=== PATIENT | female | born 1995 | race Caucasian/White ===

== ENCOUNTER 2018-07-10 17:05 | Emergency (ER) | payer OTHER ==
[2018-07-10] MEDS ORDERED: ONDANSETRON 4 MG TAB.RAPDIS PO ONE (18:17)
[2018-07-10] MEDS ORDERED: ACETAMINOPHEN 325 MG TABLET PO ONE (18:20)
--- NOTE | 2018-07-10 18:26 | ER Document Report ---
ED Head/Face/Scalp Injury - General Chief Complaint: Headache Stated Complaint: HEAD INJURY Time Seen by Provider: 07/10/18 18:02 Mode of Arrival: Ambulatory Information source: Patient Notes: 22-year-old female presents to ED for complaint of pain to her head. After she hit her head on the she states she was getting frustrated trying to push the laundry back down the shoot when she hit her head on the wall of the shoot. She states she took some ibuprofen at work when it happened and her [id number]-ad-rgx came and took her to the urgent care but the urgent care refused to see her so her eddjov-fm-loo took her back home because the xbajga-xm-mup had to go to work. She states she then had to wait until her got off work to bring her to the emergency room. She denies any loss of consciousness. She states she has been dizzy off and on and has thrown up to small times. Patient is alert and oriented respirations regular and unlabored pupils equal and react to light and walks with a even steady gait. TRAVEL OUTSIDE OF THE [place] IN LAST 30 DAYS: No - HPI Patient complains to provider of: Contusion, Injury, Pain Injury to: Head Location of problem: Head - Top of her head top of her head Occurred: This morning Where: Work Timing: Still present Context: Other - Hit her head on the laundry chute Loss consciousness: No loss of consciousness Remembers: Injury, Coming to hospital - Related Data Allergies/Adverse Reactions: No Known Allergies Allergy (Unverified 07/10/18 17:10) Past Medical History - General Information source: Patient - Social History Smoking Status: Current Every Day Smoker Cigarette use (# per day): Yes - 7-10 cigarettes a day Chew tobacco use (# tins/day): No Smoking Education Provided: Yes - 4 minutes Frequency of alcohol use: None Drug Abuse: None Occupation: Housekeeping Lives with: Family Family History: Reviewed & Not Pertinent Patient has suicidal ideation: No Patient has homicidal ideation: No - Past Medical History Cardiac Medical History: Reports: None Pulmonary Medical History: Reports: None EENT Medical History: Reports: None Endocrine Medical History: Reports: None Renal/ Medical History: Reports: None Malignancy Medical History: Reports: None GI Medical History: Reports: None Musculoskeletal Medical History: Reports Hx Musculoskeletal Trauma Skin Medical History: Reports None Psychiatric Medical History: Reports: None Traumatic Medical History: Reports: Hx Fractures - Both forearm and right leg Infectious Medical History: Reports: None Past Surgical History: Reports: Hx Oral Surgery - [place] tooth - Immunizations Immunizations up to date: Yes Review of Systems - Review of Systems Constitutional: No symptoms reported EENT: No symptoms reported Cardiovascular: Dizziness Respiratory: No symptoms reported Gastrointestinal: No symptoms reported, Nausea, Vomiting Genitourinary: No symptoms reported Female Genitourinary: No symptoms reported Musculoskeletal: No symptoms reported Skin: No symptoms reported Hematologic/Lymphatic: No symptoms reported Neurological/Psychological: Headaches. denies: Lost consciousness -: Yes All other systems reviewed and negative Physical Exam - Vital signs Vitals: Temp Pulse Resp BP Pulse Ox 100.1 F 77 16 149/90 H 99 07/10/18 17:14 07/10/18 17:14 07/10/18 17:14 07/10/18 17:14 07/10/18 17:14 Interpretation: Normal - General General appearance: Appears well, Alert - HEENT Head: Ecchymosis, Tenderness - Top of her head Eyes: Normal Pupils: PERRL Ears: Normal External canal: Normal Tympanic membrane: Normal Sinus: Normal Nasal: Normal Mouth/Lips: Normal Mucous membranes: Normal Pharynx: Normal Neck: Normal - Respiratory Respiratory status: No respiratory distress Chest status: Nontender Breath sounds: Normal Chest palpation: Normal - Cardiovascular Rhythm: Regular Heart sounds: Normal auscultation Murmur: No - Abdominal Inspection: Normal Distension: No distension Bowel sounds: Normal Tenderness: Nontender Organomegaly: No organomegaly - Back Back: Normal, Nontender - Extremities General upper extremity: Normal inspection, Nontender, Normal color, Normal ROM, Normal temperature General lower extremity: Normal inspection, Nontender, Normal color, Normal ROM, Normal temperature, Normal weight bearing. No: Jluis's sign - Neurological Neuro grossly intact: Yes Cognition: Normal Orientation: AAOx4 Jorge L Coma Scale Eye Opening: Spontaneous [place] Coma Scale Verbal: Oriented [place] Coma Scale Motor: Obeys Commands [place] Coma Scale Total: 15 Speech: Normal Motor strength normal: LUE, RUE, LLE, RLE Sensory: Normal - Psychological Associated symptoms: Normal affect, Normal mood - Skin Skin Temperature: Warm Skin Moisture: Dry Skin Color: Normal Course - Re-evaluation Re-evalutation: 07/10/18 18:33 After performing a Medical Screening Examination, I estimate there is LOW risk for ACUTE GLAUCOMA, TEMPORAL ARTERITIS, MENINGITIS, INCRANIAL HEMORRHAGE, or ISCHEMIC STROKE thus I consider the discharge disposition reasonable. I have reevaluated this patient multiple times and no significant life threatening changes are noted. The patient and I have discussed the diagnosis and risks, and we agree with discharging home with close follow-up with the understanding that symptoms and presentations can change. We also discussed returning to the Emergency Department immediately if new or worsening symptoms occur. We have discussed the symptoms which are most concerning (e.g., changing or worsening sy mptoms, new numbness or weakness, vomiting, fever) that necessitate immediate return. - Vital Signs Vital signs: Temp Pulse Resp BP Pulse Ox 98.7 F 76 18 132/86 H 98 07/10/18 18:26 07/10/18 18:26 07/10/18 18:26 07/10/18 18:26 07/10/18 18:26 Discharge - Discharge Clinical Impression: Concussion syndrome Head injury Qualifiers: Encounter type: initial encounter Qualified Code(s): S09.90XA - Unspecified injury of head, initial encounter Condition: Stable Disposition: HOME, SELF-CARE Instructions: Family Physicians / Practices Additional Instructions: Head Injury Your child's examination shows no evidence of brain injury. The child can therefore be safely observed at home. Give clear liquids only for the first eight hours. Acetaminophen or ibuprofen can safely be given for pain. Follow the directions on the bottle. Do not give any medication that may alter her/his level of alertness. Limit activity for the first 24 hours -- bed rest is advisable at first. Several times during the first 24 hours, check the patient to see if the pupils are equal in size to each other, that the patient is easily arousable, and responds normally. Contact your doctor or go to the hospital if any of the following things occur: Persistent or projectile vomiting, a seizure, confusion, unequal pupil size, difficulty in arousing the patient, worsening or continued headache, or failure to improve as expected. Acetaminophen Acetaminophen may be taken for pain relief or fever control. It's much safer than aspirin, offering a wider range of "safe" dosages. It is safe during . Some brand names are Tylenol, Panadol, Datril, Anacin 3, Tempra, and Liquiprin. Acetaminophen can be repeated every four hours. The following are maximum recommended dosages: WEIGHT Dose Drops Elixir Chewable (80mg) (LBS.) drprs=droppers tsp=teaspoon 6 40 mg .4 ml (1/2) 6-11 80 mg .8 ml (full) 1/2 tsp 1 tab 12-16 120 mg 1 1/2 drprs 3/4 tsp 1 1/2 tabs 17-23 160 mg 2 drprs 1 tsp 2 tabs 24-30 240 mg 3 drprs 1 1/2 tsp 3 tabs 30-35 320 mg 2 tsp 4 tabs 36-41 360 mg 2 1/4 tsp 4 1/2 tabs 42-47 400 mg 2 1/2 tsp 5 tabs 48-53 480 mg 3 tsp 6 tabs 54-59 520 mg 3 1/4 tsp 6 1/2 tabs 60-64 560 mg 3 1/2 tsp 7 tabs 65-70 600 mg 3 3/4 tsp 7 1/2 tabs 71-76 640 mg 4 tsp 8 tabs 77-82 720 mg 4 1/2 tsp 9 tabs 83-88 800 mg 5 tsp 10 tabs >89 pounds or adults 650 mg to 900 mg Acetaminophen can be repeated every four hours. Maximum daily dose not to exceed 4000 mg. These maximum recommended dosages are slightly higher than the dosages written on the product container, but these dosages are very safe and well below the toxic dosage for acetaminophen. Ibuprofen Ibuprofen is an excellent, safe drug for pain control. In addition, it has potent antiinflammatory effects which are beneficial, especially in the treatment of injuries, arthritis, or tendonitis. It's best to take ibuprofen with food. Persons with ulcer disease or allergy to aspirin should notify their physician of this before taking ibuprofen. Take the medication exactly as prescribed. Don't take additional doses unless instructed to do so by your doctor. If you develop wheezing, shortness of breath, hives, faintness, stomach pain, vomiting, or dark black stools, return for re-evaluation at once. Concussion You have suffered a concussion -- a temporary loss of certain brain functions due to a mild brain injury. The recovery is usually rapid and complete. The temporary problems occurring with a concussion can include loss of consciousness, dizziness, nausea, vomiting, and confusion. Repeat concussions can cause brain damage. In the future, avoid activities that will cause a blow to your head. Wear a helmet for sports such as snowboarding, biking, or skating. It's important that someone be with you for the first 24 hours. During this time, do not exercise or drive a vehicle. Do not take any pain medication stronger than acetaminophen unless prescribed by the physician. Any significant changes should be reported immediately to the physician. Signs of a problem may include: (1) Mental confusion (2) Incoordination or staggering (3) Repeated or forceful vomiting (4) Clear or bloody drainage from ear, mouth, or nose (5) Severe headache, not relieved by acetaminophen or prescribed pain medication (6) Failure to improve in 24 hours Antinausea Medication You have been given a medication to suppress nausea and vomiting. This type of medication can be given as a shot, pill, or suppository. It will usually last for many hours. Pills and shots usually last six to eight hours, suppositories last about 12 hours. For the typical illness, only one or two doses of the medication may be necessary. Mild lightheadedness may occur. This type of medicine can cause drowsiness. Do not drive or operate dangerous machinery while under its influence. Do not mix with alcohol. See your doctor at once if you have muscle spasms or tightness, or uncontrollable motions (particularly of the neck, mouth, or jaw). Persistent vomiting or severe lightheadedness should also be evaluated by the physician. FOLLOW-UP CARE: If you have been referred to a physician for follow-up care, call the physicians office for an appointment as you were instructed or within the next two days. If you experience worsening or a significant change in your symptoms, notify the physician immediately or return to the Emergency Department at any time for re-evaluation. Prescriptions: Ondansetron [Zofran Odt 4 mg Tablet] 1 tab PO Q6H #7 tab.rapdis Forms: Elevated Blood Pressure, Smoking Cessation Education, Return to Work
[2018-07-10 18:27] VITALS: BP 132/86
== END 2018-07-10 18:30 | disposition home or self-care (01) ==
LOC: ER 17:05
DX: S00.03XA Contusion of scalp, initial encounter (principal); F07.81 Postconcussional syndrome; W22.09XA Striking against other stationary object, initial encounter; Y93.89 Activity, other specified; Y99.0 Civilian activity done for income or pay; F17.210 Nicotine dependence, cigarettes, uncomplicated; Z71.6 Tobacco abuse counseling; R42 Dizziness and giddiness; R11.10 Vomiting, unspecified
CPT/HCPCS: 99406; 99283; S0119

== ENCOUNTER 2019-04-23 13:41 | Emergency (ER) | payer OTHER ==
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
[2019-04-23 16:24] VITALS: BP 117/76
--- NOTE | 2019-04-23 20:45 | EKG REPORT ---
SEVERITY:- BORDERLINE ECG - SINUS RHYTHM BORDERLINE T ABNORMALITIES, DIFFUSE LEADS : Confirmed by: Marry Oscar 23-Apr-2019 20:44:58
== END 2019-04-23 16:49 | disposition home or self-care (01) ==
LOC: ER 13:41
DX: R07.9 Chest pain, unspecified (principal); R06.00 Dyspnea, unspecified; V89.2XXA Person injured in unspecified motor-vehicle accident, traffic, initial encounter
CPT/HCPCS: 71260; 93005; 93010; 99284